=== PATIENT | male | born 1970 | race Caucasian/White ===

== ENCOUNTER 2017-09-03 13:52 | Emergency (ER) | payer BC, MEDICAID ==
[~2017-09-03] VITALS: Ht 172.7 cm; Wt 80.0 kg
[~2017-09-03 13:52] MED LIST: NAPR-56 PO; NO HOME MEDS
[2017-09-03 14:05] VITALS: BP 135/115
[2017-09-03] MEDS ORDERED: TETanus/Pertussis (Acell)/Diphther VAC/PF (Tdap-Adult) 0.5ml syringe IMVAC ONE (14:15)
[2017-09-03] MEDS ORDERED: amox tr/potassium clavulanate 875/125mg TAB PO ONE (14:15)
[2017-09-03] MEDS ORDERED: LIDOcaine 1.5% w/epinephrine 1:200,000 5ml ampul IJ ONE (14:15)
[2017-09-03] MEDS ORDERED: NEOM30OI17 TOP (16:04)
[2017-09-03] MEDS ORDERED: IBUP-1986 PO (16:04)
[2017-09-03] MEDS ORDERED: AMOX-580 PO (16:04)
== END 2017-09-03 16:32 ==
LOC: ER 13:53
DX: S62.396A Other fracture of fifth metacarpal bone, right hand, initial encounter for closed fracture (principal); S81.811A Laceration without foreign body, right lower leg, initial encounter; S81.812A Laceration without foreign body, left lower leg, initial encounter; S01.111A Laceration without foreign body of right eyelid and periocular area, initial encounter; S71.131A Puncture wound without foreign body, right thigh, initial encounter; S30.810A Abrasion of lower back and pelvis, initial encounter; F17.210 Nicotine dependence, cigarettes, uncomplicated; Z79.899 Other long term (current) drug therapy; W54.0XXA Bitten by dog, initial encounter; Y93.89 Activity, other specified; Y92.89 Other specified places as the place of occurrence of the external cause; Y99.8 Other external cause status
CPT/HCPCS: 29125; 73130; 90471; 90715; 99284; A6449; J3490

== ENCOUNTER 2017-09-17 09:48 | Outpatient (CLI) | payer BC ==
[~2017-09-17 09:48] MED LIST changes: +AMOX-580 PO; +IBUP-1986 PO; +NEOM30OI17 TOP
[2017-09-17 09:49] VITALS: BP 141/98
[2017-09-17] MEDS ORDERED: LIDOcaine 1%/PF (10mg/ml) 5ml vial ONE (10:35)
== END 2017-09-17 10:20 | disposition home or self-care (01) ==
LOC: ORTHO 09:48
PROVIDERS: ATTEND Nurse Practitioner Family
DX: S62.336A Displaced fracture of neck of fifth metacarpal bone, right hand, initial encounter for closed fracture (principal); F17.210 Nicotine dependence, cigarettes, uncomplicated; Z72.89 Other problems related to lifestyle; Z60.2 Problems related to living alone; X58.XXXA Exposure to other specified factors, initial encounter; Y93.89 Activity, other specified; Y92.89 Other specified places as the place of occurrence of the external cause; Y99.8 Other external cause status
CPT/HCPCS: 26605; 29125; 73130; 99214; J2001

== ENCOUNTER 2017-10-21 10:13 | Outpatient (CLI) | payer BC ==
[~2017-10-21 10:13] MED LIST changes: -AMOX-580 PO
[2017-10-21 10:19] VITALS: BP 141/93
== END 2017-10-21 10:50 | disposition home or self-care (01) ==
LOC: ORTHO 10:13
PROVIDERS: ATTEND Nurse Practitioner Family
DX: S62.336D Displaced fracture of neck of fifth metacarpal bone, right hand, subsequent encounter for fracture with routine healing (principal); Z60.2 Problems related to living alone; X58.XXXD Exposure to other specified factors, subsequent encounter
CPT/HCPCS: 29125; 73130; 99213

== ENCOUNTER 2017-11-11 10:35 | Outpatient (CLI) | payer BC | END 2017-11-11 11:39 | LOC: ORTHO 10:35 | PROVIDERS: ATTEND Nurse Practitioner Family | DX: S62.366D Nondisplaced fracture of neck of fifth metacarpal bone, right hand, subsequent encounter for fracture with routine healing (principal); Z87.891 Personal history of nicotine dependence; Z60.2 Problems related to living alone; X58.XXXD Exposure to other specified factors, subsequent encounter | CPT/HCPCS: 73130 ==

== ENCOUNTER 2019-12-23 20:11 | Emergency (ER) | payer BC, OTHER ==
[~2019-12-23] VITALS: Ht 180.3 cm; Wt 81.8 kg
[2019-12-23 20:20] VITALS: BP 153/88
--- NOTE | 2019-12-23 21:55 | NUR ---
HENRY Ku is at the bedside with the patient at this time.
== END 2019-12-23 22:23 | disposition home or self-care (01) ==
LOC: ER 20:13
DX: S00.412A Abrasion of left ear, initial encounter (principal); R58 Hemorrhage, not elsewhere classified; R20.2 Paresthesia of skin; Z60.2 Problems related to living alone; Z79.2 Long term (current) use of antibiotics; Z79.899 Other long term (current) drug therapy; X58.XXXA Exposure to other specified factors, initial encounter; Y93.89 Activity, other specified; Y92.89 Other specified places as the place of occurrence of the external cause; Y99.8 Other external cause status
CPT/HCPCS: 99281

== ENCOUNTER 2021-09-28 08:33 | Day surgery (SDC) | payer OTHER ==
[2021-09-21 15:20] LABS: BASOPHILS % (AUTO) 0.6 % (0-1); EOSINOPHILS # (AUTO) 0.1 X10'3 (0-0.9); EOSINOPHILS % (AUTO) 0.9 % (0-6); LYMPHOCYTES # (AUTO) 1.6 X10'3 (1.1-4.8); LYMPHOCYTES % (AUTO) 18.8 % (21-51); MEAN CORPUSCULAR HEMOGLOBIN 34.3 PG (27.0-31.0); MEAN CORPUSCULAR HGB CONC 34.2 g/dL (33.0-36.5); MEAN CORPUSCULAR VOLUME 100.2 FL (78-98); MEAN PLATELET VOLUME 8.7 FL (7.4-10.4); MONOCYTES # (AUTO) 0.5 X10'3 (0-0.9); MONOCYTES % (AUTO) 6.5 % (2-12); NEUTROPHILS # (AUTO) 6.1 X10'3 (1.8-7.7); NEUTROPHILS % (AUTO) 73.2 % (42-75); PRE OP HEMATOCRIT 35.8 % (42.0-52.0); PRE OP HEMOGLOBIN 12.2 g/dL (14.0-17.9); PRE OP PLATELET COUNT 231 X10'3 (140-440); RED BLOOD COUNT 3.57 X10'6 (4.70-6.10); RED CELL DISTRIBUTION WIDTH 13.1 % (11.5-14.5)
[2021-09-21 15:30] LABS: ALBUMIN 3.6 G/DL (3.4-5.0); ALBUMIN/GLOBULIN RATIO 0.9 (1.1-1.5); ALKALINE PHOSPHATASE 66 IU/L (46-116); BLOOD UREA NITROGEN 21 MG/DL (7-18); BUN/CREATININE RATIO 14.5 (5.4-32.0); CALCIUM 9.9 MG/DL (8.5-10.1); CHLORIDE 104 MMOL/L (99-107); CREATININE 1.45 MG/DL (0.60-1.10); PRE OP ALT 59 U/L (30-65); PRE OP ANION GAP 12 (8-16); PRE OP AST 41 U/L (10-37); PRE OP BILIRUB, TOTAL 0.3 MG/DL (0.0-1.0); PRE OP GLUCOSE 98 MG/DL (70-104); PRE OP POTASSIUM 4.8 MMOL/L (3.4-5.1); PRE OP SODIUM 141 MMOL/L (135-145); TOTAL CARBON DIOXIDE 25.2 MMOL/L (24-32); TOTAL PROTEIN 7.8 G/DL (6.4-8.2); eGFR 51 ML/MIN
[2021-09-28] VITALS (9 sets, daily range): BP systolic 107–125; BP diastolic 61–97
[~2021-09-28] VITALS: Ht 180.3 cm; Wt 87.5 kg
[~2021-09-28 08:33] MED LIST changes: +HYDR25TA4 PO; -IBUP-1986 PO; +LISI40TA13 PO; -NAPR-56 PO; -NEOM30OI17 TOP; -NO HOME MEDS; +albuterol 2.5 MG/3 ML nebule NEB ONE; +cefazolin/dext.iso 2gm/50ml IV ONE; +famotidine 20mg tablet PO ONE; +ringers solution, lacted 1,000 ML IV SCH; +vancomycin 1,500 MG in NS 300ml IV soln IV ONE
[2021-09-28] MEDS ORDERED: LIDOcaine 1% (10mg/ml) 2ml vial ONE (08:42)
[2021-09-28] MEDS ORDERED: cloNIDine hcl/PF 100mcg/ml inj ONE (09:12)
[2021-09-28] MEDS ORDERED: ROPIVAcaine 0.5% (5mg/ml) 30ml vial ONE ×2 (09:12→12:00)
[2021-09-28] MEDS ORDERED: FENTANYL CITRATE/PF 50 MCG/1 ML VIAL ONE (09:18)
[2021-09-28] MEDS ORDERED: midazolam 1 mg/ML 2ml injection ONE (09:18)
[2021-09-28] MEDS ORDERED: sevoflurane 250ml liquid IH ONE (10:43)
[2021-09-28] MEDS ORDERED: acetaminophen 1000 MG/100ml vial IV ONE (10:43)
[2021-09-28] MEDS ORDERED: triamcinolone acetonide 40mg/ml inj ONE (11:08)
[2021-09-28] MEDS ORDERED: BUPIVAcaine 0.5% inj/PF 30 ML ONE (11:09)
[2021-09-28] MEDS ORDERED: morphine 4 MG/ML inj SYRINge IV PRN (11:20)
[2021-09-28] MEDS ORDERED: meperidine/PF 25mg/ml syringe IV PRN ×3 (11:20)
[2021-09-28] MEDS ORDERED: morphine 2 MG/ML inj. syringe IV PRN (11:20)
[2021-09-28] MEDS ORDERED: proCHLORperazine 10 MG/2 ml inj IV PRN (11:20)
[2021-09-28] MEDS ORDERED: ondansetron/PF 4mg/2ml inj IV PRN (11:20)
[2021-09-28] MEDS ORDERED: ringers solution, lacted 1,000 ML IV SCH (11:20)
[2021-09-28] MEDS ORDERED: propofol inj 20 ML IV ONE (12:00)
[2021-09-28] MEDS ORDERED: ondansetron/PF 4mg/2ml inj ONE (12:00)
[2021-09-28] MEDS ORDERED: dexamethasone sod phosphate 4mg/ml inj. ONE (12:00)
[2021-09-28] MEDS ORDERED: LIDOcaine 1%/PF 5ML 10 MG/ML VIAL ONE (12:00)
[2021-09-28] MEDS ORDERED: ePHEDrine 50MG/ML INJ. ONE (12:00)
[2021-09-28] MEDS ORDERED: meperidine/PF 25mg/ml syringe ONE ×2 (12:22→12:36)
--- NOTE | 2021-09-28 12:36 | NUR ---
Received from OR via [facility] IN STABLE CONDITION , accompanied by Anesthesiologist and ALARM SECURITY OR SURVEILLANCE MONITOR report given by ALARM SECURITY OR SURVEILLANCE MONITOR AND Anesthesiolgist. Addendum: 09/28/21 at 1316 by Kaitlyn Michael RN Amended: Links added.
--- NOTE | 2021-09-28 14:06 | NUR ---
PATIENT DISCHARGED FROM PACU IN STABLE CONDITION AFTER WRITTEN AND VERBAL DISCHARGE INSTRUCTIONS GIVEN. PATIENT GAVE VERBAL UNDERSTANDING OF INSTRUCTIONS. PATIENT LEFT FACILITY VIA WHEELCHAIR WITH RN. Addendum: 09/28/21 at 1417 by Kaitlyn Michael RN Amended: Links added.
== END 2021-09-28 14:06 | disposition home or self-care (01) ==
LOC: PAS 08:33
PROVIDERS: ATTEND Orthopaedic Surgery
DX: S43.432A Superior glenoid labrum lesion of left shoulder, initial encounter (principal); M19.012 Primary osteoarthritis, left shoulder; M75.42 Impingement syndrome of left shoulder; M94.212 Chondromalacia, left shoulder; M65.812 Other synovitis and tenosynovitis, left shoulder; G89.18 Other acute postprocedural pain; E66.8 Other obesity; Z68.32 Body mass index [BMI] 32.0-32.9, adult; I10 Essential (primary) hypertension; F17.210 Nicotine dependence, cigarettes, uncomplicated; Z72.89 Other problems related to lifestyle; Z79.899 Other long term (current) drug therapy; Z20.822 Contact with and (suspected) exposure to COVID-19; W11.XXXA Fall on and from ladder, initial encounter; Y93.89 Activity, other specified; Y92.89 Other specified places as the place of occurrence of the external cause; Y99.8 Other external cause status
CPT/HCPCS: 29807; 29823; 29824; 29826; 36415; 64415; 76942; 80053; 82948; 85025; 93005; C1713; C9803; J0131; J0690; J0735; J1100; J2175; J2250; J2405; J2704; J2795; J3010; J3301; J3370; J3490; J7040; J7120; S0020; U0003; U0005; Z7506; Z7508; Z7512; A4215; A4565; A4618; A6250; A6449; A7000